=== PATIENT | female | born 1950 | race Hispanic/Latino ===

== ENCOUNTER → 2024-08-02 | Outpatient (CLI) | payer OTHER ==
--- NOTE | 2024-08-02 09:31 | HMCIMG ---
DEXA BONE DENSITY SURVEY HISTORY: Osteoporosis COMPARISON: None FINDINGS: Bone densitometry study was performed. Bone mineral density of the lumbar spine is 0.761 gram per centimeter square which corresponds to a T score of -2.6 and a Z score of -0.3. Bone mineral density of the left hip is 0.747 grams per centimeter square which corresponds to a T score of -1.6 and a Z score of 0.1. IMPRESSION: 1. . 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
== END | disposition home or self-care (01) ==
LOC: RAH 08:51
PROVIDERS: ATTEND Internal Medicine
DX: Z13.820 Encounter for screening for osteoporosis (principal); M81.0 Age-related osteoporosis without current pathological fracture; K74.60 Unspecified cirrhosis of liver; M85.89 Other specified disorders of bone density and structure, multiple sites
CPT/HCPCS: 77080